=== PATIENT | male | born 1995 | race African-American/Black ===

== ENCOUNTER 2016-06-28 18:20 | Emergency (ER) | payer BC, OTHER ==
[2016-06-28 18:35] VITALS: BP 138/74; PULSE 56; RESP 12; TEMP 98.2; O2SAT 98
--- NOTE | 2016-06-28 19:02 | DX ---
Left tibia and fibula, 2 views History: Pain with running. Findings: Left tibia and fibula demonstrate no evidence of fracture or stress fracture. No destructiv e osseous lesions. Soft tissues are unremarkable. Impression: No evidence of fracture of the left tibia or fibula.
--- NOTE | 2016-06-28 19:30 | UCPHY ---
H & P Time Seen by Provider: 06/28/16 18:39 Patient Type: Established HPI/ROS: This patient reports left lower leg pain the medial mid tibial region that over the past 2 months to varying degrees. He explains that he has been running regularly for the past 6 months for fitness and the riding his very from when sprains to a distance running and he has developed this mild ache that is 1/10 at baseline for 10 intensity with running. The for 10 intensity it is the worst intensity that just increased to the 4/10 over the past 2 days. He notes no other exacerbating or alleviating factors. He has not tried any analgesics for the symptoms. ROS: No acute trauma. He reports no significant swelling. No other musculoskeletal complaints. Pulmonary: No chest pain or shortness of breath cardiovascular: No lightheadedness. 5 point ROS is otherwise negative Past Medical/Surgical History: Otherwise healthy Family history is negative for DVT or PE Social History: [employer] now studying at [employer] Smoking Status: Never smoked Physical Exam: Physical Exam Vital signs are normal. General: Healthy and fit appearing young man No acute distress Eyes: Pupils equal and react to light. Extraocular motions are intact. Lungs: No respiratory distress. Cardiac: Brisk capillary refill is intact throughout. Pulses are 2+ and symmetric in the affected extremity. Extremities: Atraumatic and normal except for left leg Left leg: Patient has mild tenderness to the medial distal tibial region. This slight fibrous feel to the area that is tender though no masses detected feels slightly firmer than the immediate surrounding area for region that is approximately 3 cm in size on my examination. Homans is negative. No foot or ankle tenderness. No knee swelling or tenderness. Skin: No rash or pallor. Neuro: Alert and oriented x3 with no sensorimotor deficits. Initial differential diagnosis: Strain, DVT, soft tissue fibroma or tumor, osteosarcoma Constitutional: Initial Vital Signs Temperature (C) 36.8 C 06/28/16 18:29 Heart Rate 56 L 06/28/16 18:29 Respiratory Rate 12 06/28/16 18:29 Blood Pressure 138/74 H 06/28/16 18:29 O2 Sat (%) 98 06/28/16 18:29 O2 Delivery Mode Room Air Allergies/Adverse Reactions: No Known Allergies Allergy (Verified 06/28/16 18:29) MDM/Departure - MDM Diagnostics: Tib-fib x-ray: Read by our radiologist and reviewed by myself: Negative for abnormalities D-dimer is normal ED Course/Re-evaluation: Discussion: Leg pain of uncertain etiology. No evidence of bony abnormality on plain radiograph and D-dimer is negative. He has no other risk factors for DVT so this effectively rules out DVT currently. I counseled regarding this. He will follow up with orthopedics for any ongoing symptoms. - Depart Disposition: Home, Routine, Self-Care Clinical Impression: Leg pain Qualifiers: Laterality: left Qualifier Code: (M79.605) Pain in left leg Condition: Good Instructions: Leg Pain (ED) Additional Instructions: Diagnosis: Leg pain Your D-dimer test is negative (is not elevated). Your x-ray appears normal. Plan: Ibuprofen if needed for leg discomfort. Follow up with orthopedics for further evaluation for any ongoing symptoms. [place]errals[place],. [Primary Care Provider] - As per Instructions Petr Zambrano MD [Medical Doctor] - As per Instructions - PQRS PQRS Measurement: NA
== END 2016-06-28 19:42 | disposition home or self-care (01) ==
LOC: CED 18:20
DX: M79.662 Pain in left lower leg (principal)
CPT/HCPCS: 73590-PO; 85378-PO; 99214-PO; G0463-PO